=== PATIENT | female | born 1940 | race Caucasian/White ===

== ENCOUNTER → 2016-08-31 | Outpatient (CLI) | payer SELFPAY ==
[~2016-08-31] MED LIST: ASPIRIN EC81 M1 PO; CENTRUM SILVER PO; CITRACAL + D CA1 TA1 PO; LISINOPRIL-HCTZ1 T18 PO; PRAVASTATIN SOD40 MG PO
== END | disposition home or self-care (01) ==
LOC: SGUS 09:30
DX: Z13.6 Encounter for screening for cardiovascular disorders (principal)